=== PATIENT | male | born 1940 | race Caucasian/White ===

== ENCOUNTER → 2017-11-21 | Outpatient (CLI) | payer MEDICARE, BC ==
--- NOTE | 2017-11-21 14:01 | Diagnostic Imaging Report ---
PROCEDURE: CT CHEST WITHOUT CONTRAST CT scan of the chest WITHOUT intravenous contrast, using standard protocol. TECHNIQUE: The chest was scanned utilizing a multidetector helical scanner from the apex to the level of the adrenal glands. No IV contrast was administered per physician request. Coronal and sagittal multiplanar reformations were obtained. Total DLP: 223 mGy-cm COMPARISON: None. INDICATIONS: ABNORMAL CHEST X RAY FINDINGS: Lines/tubes: None. Lungs and Airways: The lungs and airways are normal with no focal abnormality demonstrated. Pleura: No pleural effusion or pneumothorax. The diffuse scattered nodular pleural thickening especially in the lung apices bilaterally. Heart and mediastinum: The thyroid gland is normal. No significant mediastinal, hilar or axillary lymphadenopathy is seen. The heart and pericardium are within normal limits. Soft tissues: Normal. Abdomen: 1.6 cm heavily peripherally calcified lesion in the right hepatic lobe, likely old trauma or infection such as the Echinococcus cyst. Bones: The visualized bony thorax is within normal limits. Mild compression deformity of the superior endplate of T5 vertebral body. IMPRESSION: Scattered nodular mild pleural thickening bilaterally especially in the lung apices. Otherwise, no acute abnormalities identified. Dictated by: Brian Murillo M.D. on 11/21/2017 at 14:09 Electronically approved by: Brian Murillo M.D. on 11/21/2017 at 14:09
== END ==
LOC: CT 13:08
PROVIDERS: ATTEND Internal Medicine
DX: R94.2 Abnormal results of pulmonary function studies (principal)
CPT/HCPCS: 71250